=== PATIENT | male | born 1950 | race Two or more races ===

== ENCOUNTER 2020-09-25 12:06 | Inpatient (IN) | payer OTHER, MEDICAID ==
[~2020-09-25] VITALS: Ht 185.4 cm; Wt 66.4 kg
[2020-09-25] MEDS ORDERED: AZITHROMYCIN 500MG/ 250ML 250 ML IV ONE (12:30)
[2020-09-25] MEDS ORDERED: CHOLECALCIFEROL (VITD3) 2,000 UNIT CAP/TAB PO ONE (12:30)
[2020-09-25] MEDS ORDERED: methylPREDNISolone SOD SUCC 125 MG/2 ML VL IV ONE (12:30)
[2020-09-25] MEDS ORDERED: ASCORBIC ACID 500 MG TAB PO ONE (12:30)
[2020-09-25] MEDS ORDERED: ZINC SULFATE 220mg CAP or TAB PO ONE (12:30)
[2020-09-25 14:07] LABS: Basophils # (auto) 0 10 ^3/uL (0-0.2); Basophils % (auto) 0.2 % (0.0-2.0); Eosinophils # (auto) 0 10 ^3/uL (0-0.8); Hematocrit 42.7 % (41.0-53.0); Hemoglobin 14.7 g/dL (13.5-17.5); Lymphocytes # (auto) 0.7 10 ^3/uL (0.4-5.4); Lymphocytes % (auto) 9.6 % (10.0-50.0); Mean Corpuscular Hemoglobin 28.3 pg (28.0-32.0); Mean Corpuscular Hgb Conc. 34.4 g/dL (32.0-36.0); Mean Corpuscular Volume 82.4 fL (80.0-100.0); Monocytes # (auto) 0.6 10 ^3/uL (0-1.3); Monocytes % (auto) 8.1 % (0.0-12.0); Neutrophils # (auto) 6.1 10 ^3/uL (1.6-8.6); Neutrophils % (auto) 82.1 % (37.0-80.0); Nucleated Red Blood Cells % 0.1 %; Red Blood Cells 5.19 10^6/uL (4.5-5.90); Red Cell Distribution Width 14.7 % (11.8-14.3); White Blood Cell 7.4 10^3/uL (4.4-10.8)
[2020-09-25 14:30] LABS: Lactic Acid w/Reflex 2.6 mmol/L (0.4-2.0)
[2020-09-25 14:58] LABS: BUN/Creatinine Ratio 18.9; Calcium 7.8 mg/dL (8.5-10.1); Potassium 4.5 mmol/L (3.5-5.1)
[2020-09-25 15:07] LABS: Bilirubin, Total 0.4 mg/dL (0.2-1.0); CRP High Sensitivity 13.6 mg/dL (< 0.3); Total Protein 7.8 g/dL (6.4-8.2)
[2020-09-25] MEDS ORDERED: ONDANSETRON HCL 4 MG/2 ML VIAL IV PRN (16:15)
[2020-09-25] MEDS ORDERED: ACETAMINOPHEN 500 MG TAB PO PRN ×2 (16:15)
[2020-09-25] MEDS ORDERED: REMDESIVIR PER PHARMACY 0 ML IV SCH ×2 (16:15→18:30)
[2020-09-25] MEDS ORDERED: MORPHINE SULF INJ 2 MG/ML SYRINGE 1ML IV PRN (16:15)
[2020-09-25] MEDS ORDERED: NITROGLYCERIN 0.4 MG SL TAB SL PRN (16:15)
[2020-09-25] MEDS ORDERED: FUROSEMIDE 20 MG/2 ML VIAL IV ONE (16:15)
[2020-09-25] MEDS ORDERED: IVERMECTIN 3 MG TAB PO SCH (16:25)
[2020-09-25] MEDS: cefTRIAXone 1GM/50ML D5W 50 ML IV SCH (17:20)
[2020-09-25 17:52] LABS: Urine Bacteria FEW /hpf (None Seen); Urine Blood 1+ /uL (Negative); Urine Hyaline Cast FEW /lpf (0 - 2); Urine Mucus FEW (None Seen); Urine Specific Gravity 1.014 (1.001-1.035); Urine WBC 1 /hpf (0 - 3)
[2020-09-25] MEDS ORDERED: TOCILIZUMAB 400 MG in SODIUM CHL 0.9% 80 ML IV SCH (22:00)
[2020-09-25] MEDS: BUDESONIDE (INHALATION) 180 MCG IH IN SCH (22:05)
[2020-09-25] MEDS: ALBUTEROL SULF HFA 90MCG INH 200DOSE IN PRN (22:06)
[2020-09-25] MEDS: ENOXAPARIN SOD 40 MG/0.4 ML SYRINGE SC SCH (22:16)
[2020-09-26 05:11] VITALS: BP 143/73
[2020-09-26 05:36] VITALS: BP 136/67
[2020-09-26 06:21] VITALS: BP 169/84
[2020-09-26 06:38] LABS: Basophils # (auto) 0 10 ^3/uL (0-0.2); Basophils % (auto) 0.2 % (0.0-2.0); Eosinophils # (auto) 0 10 ^3/uL (0-0.8); Hematocrit 43.6 % (41.0-53.0); Hemoglobin 14.8 g/dL (13.5-17.5); Lymphocytes # (auto) 0.4 10 ^3/uL (0.4-5.4); Lymphocytes % (auto) 9.4 % (10.0-50.0); Mean Corpuscular Hemoglobin 28.1 pg (28.0-32.0); Mean Corpuscular Volume 82.6 fL (80.0-100.0); Monocytes # (auto) 0.5 10 ^3/uL (0-1.3); Monocytes % (auto) 11.7 % (0.0-12.0); Neutrophils # (auto) 3.3 10 ^3/uL (1.6-8.6); Neutrophils % (auto) 78.7 % (37.0-80.0); Nucleated Red Blood Cells % 0.1 %; Red Blood Cells 5.27 10^6/uL (4.5-5.90); Red Cell Distribution Width 15.2 % (11.8-14.3); White Blood Cell 4.2 10^3/uL (4.4-10.8)
[2020-09-26 06:54] LABS: Albumin 2.6 g/dL (3.4-5.0); Calcium 8.4 mg/dL (8.5-10.1); Potassium 5.4 mmol/L (3.5-5.1)
[2020-09-26 06:57] LABS: BUN/Creatinine Ratio 25.3; Bilirubin, Total 0.4 mg/dL (0.2-1.0); Total Protein 7.8 g/dL (6.4-8.2)
[2020-09-26 06:59] VITALS: BP 146/71
[2020-09-26] MEDS: BUDESONIDE (INHALATION) 180 MCG IH IN SCH ×2 (07:32→21:58)
[2020-09-26] MEDS: ALBUTEROL SULF HFA 90MCG INH 200DOSE IN PRN (07:33)
[2020-09-26] MEDS ORDERED: DEXTROSE (50%) 50ML SYRG IV PRN (08:15)
[2020-09-26] MEDS: cefTRIAXone 1GM/50ML D5W 50 ML IV SCH (09:28)
[2020-09-26] MEDS: DexAMETHasone SOD PHOS 10MG/1ML VIAL INJ IV SCH (10:07)
[2020-09-26] MEDS: PANTOPRAZOLE 40 MG TAB PO SCH (10:07)
[2020-09-26] MEDS: ENOXAPARIN SOD 40 MG/0.4 ML SYRINGE SC SCH ×2 (10:07→22:23)
[2020-09-26] MEDS: ASCORBIC ACID 1,000 MG TAB PO SCH (10:08)
[2020-09-26] MEDS: CHOLECALCIFEROL (VITD3) 2,000 UNIT CAP/TAB PO SCH (10:08)
[2020-09-26] MEDS: ZINC SULFATE 220mg CAP or TAB PO SCH (10:08)
[2020-09-26] MEDS: MORPHINE SULF INJ 2 MG/ML SYRINGE 1ML IV PRN (10:10)
[2020-09-26] MEDS: AZITHROMYCIN 500MG/ 250ML 250 ML IV SCH (11:07)
[2020-09-26] MEDS ORDERED: InsuLIN REG 1unit/0.01ml Soln (100units/ml) SC SCH (12:00)
[2020-09-26] MEDS: ACCU-CHEK COMFORT CURVE STRIP VI SCH ×2 (12:18→17:44)
[2020-09-26] MEDS: IVERMECTIN 3 MG TAB PO SCH (12:18)
[2020-09-26] MEDS ORDERED: REMDESIVIR 200 MG in NS 210ml LOADING DOSE ADULT IV ONE (15:00)
[2020-09-26] MEDS ORDERED: FUROSEMIDE 100 MG/10ML VIAL IV ONE (16:45)
[2020-09-26] MEDS: InsuLIN REG 1unit/0.01ml Soln (100units/ml) SC SCH ×2 (17:45→22:24)
[2020-09-26] MEDS: INSULIN LANTUS (GLARGINE) 1 /0.01ml (100units/ml) SC SCH (22:23)
[2020-09-26 23:28] VITALS: BP 100/64
[2020-09-27] MEDS ORDERED: LISI20TA28 PO (00:37)
[2020-09-27] MEDS ORDERED: GLIP5TAB5 PO (00:37)
[2020-09-27] MEDS ORDERED: INSU1INJ19 SC (00:37)
[2020-09-27] MEDS ORDERED: ASPI-318 PO (00:37)
[2020-09-27] MEDS: ACCU-CHEK COMFORT CURVE STRIP VI SCH ×6 (02:36→21:50)
[2020-09-27] MEDS: InsuLIN REG 1unit/0.01ml Soln (100units/ml) SC SCH ×6 (02:38→21:49)
[2020-09-27 05:00] VITALS: BP 115/70
[2020-09-27 06:47] LABS: Potassium 4.5 mmol/L (3.5-5.1)
[2020-09-27 06:54] LABS: Albumin 2.8 g/dL (3.4-5.0); Bilirubin, Total 0.3 mg/dL (0.2-1.0); Calcium 8.9 mg/dL (8.5-10.1); Total Protein 8.2 g/dL (6.4-8.2)
[2020-09-27] MEDS: ALBUTEROL SULF HFA 90MCG INH 200DOSE IN PRN ×2 (07:08→22:55)
[2020-09-27] MEDS: BUDESONIDE (INHALATION) 180 MCG IH IN SCH ×2 (07:08→22:55)
[2020-09-27 09:00] VITALS: BP 126/70
[2020-09-27] MEDS: cefTRIAXone 1GM/50ML D5W 50 ML IV SCH (10:11)
[2020-09-27] MEDS: DexAMETHasone SOD PHOS 10MG/1ML VIAL INJ IV SCH (10:12)
[2020-09-27] MEDS: IVERMECTIN 3 MG TAB PO SCH (10:12)
[2020-09-27] MEDS: AZITHROMYCIN 500MG/ 250ML 250 ML IV SCH ×2 (10:12→12:07)
[2020-09-27] MEDS: PANTOPRAZOLE 40 MG TAB PO SCH (10:12)
[2020-09-27] MEDS: ZINC SULFATE 220mg CAP or TAB PO SCH (10:12)
[2020-09-27] MEDS: CHOLECALCIFEROL (VITD3) 2,000 UNIT CAP/TAB PO SCH (10:13)
[2020-09-27] MEDS: ENOXAPARIN SOD 40 MG/0.4 ML SYRINGE SC SCH ×2 (10:13→21:49)
[2020-09-27] MEDS: ASCORBIC ACID 1,000 MG TAB PO SCH (10:13)
[2020-09-27] MEDS: HYDROcodone-ACET 5/325MG TAB PO PRN ×2 (12:10→18:15)
[2020-09-27 13:00] VITALS: BP 117/66
[2020-09-27] MEDS ORDERED: GLIP2.5T4 PO (14:20)
[2020-09-27] MEDS: REMDESIVIR 100mg 100 MG in SODIUM CHL 0.9% 230 ML IV SCH (16:15)
[2020-09-27 17:00] VITALS: BP 125/70
[2020-09-27] MEDS: INSULIN LANTUS (GLARGINE) 1 /0.01ml (100units/ml) SC SCH (21:50)
[2020-09-27 22:04] VITALS: BP 129/72
[2020-09-28] MEDS: HYDROcodone-ACET 5/325MG TAB PO PRN ×3 (00:18→13:12)
[2020-09-28] MEDS: ACCU-CHEK COMFORT CURVE STRIP VI SCH ×6 (01:51→20:47)
[2020-09-28] MEDS: InsuLIN REG 1unit/0.01ml Soln (100units/ml) SC SCH ×6 (01:55→20:44)
[2020-09-28 05:05] VITALS: BP 114/75
[2020-09-28] MEDS: ALBUTEROL SULF HFA 90MCG INH 200DOSE IN PRN ×2 (07:54→20:49)
[2020-09-28] MEDS: BUDESONIDE (INHALATION) 180 MCG IH IN SCH ×2 (07:54→19:21)
[2020-09-28 09:00] VITALS: BP 111/58
[2020-09-28] MEDS: CHOLECALCIFEROL (VITD3) 2,000 UNIT CAP/TAB PO SCH (10:01)
[2020-09-28] MEDS: DexAMETHasone SOD PHOS 10MG/1ML VIAL INJ IV SCH (10:01)
[2020-09-28] MEDS: cefTRIAXone 1GM/50ML D5W 50 ML IV SCH (10:01)
[2020-09-28] MEDS: AZITHROMYCIN 500MG/ 250ML 250 ML IV SCH (10:01)
[2020-09-28] MEDS: PANTOPRAZOLE 40 MG TAB PO SCH (10:02)
[2020-09-28] MEDS: IVERMECTIN 3 MG TAB PO SCH (10:02)
[2020-09-28] MEDS: ZINC SULFATE 220mg CAP or TAB PO SCH (10:02)
[2020-09-28] MEDS: ENOXAPARIN SOD 40 MG/0.4 ML SYRINGE SC SCH ×2 (10:03→20:47)
[2020-09-28] MEDS: ASCORBIC ACID 1,000 MG TAB PO SCH (10:03)
[2020-09-28 13:00] VITALS: BP 117/72
[2020-09-28 14:00] VITALS: BP 111/58
[2020-09-28] MEDS: MORPHINE SULF INJ 2 MG/ML SYRINGE 1ML IV PRN ×2 (14:38→18:25)
[2020-09-28] MEDS: REMDESIVIR 100mg 100 MG in SODIUM CHL 0.9% 230 ML IV SCH (15:14)
[2020-09-28 17:00] VITALS: BP 148/81
[2020-09-28 17:40] LABS: Creatinine, Urine 63 mg/dL (30.0-125.0); Protein, Urine 48.9 mg/dL (0.0-11.9); Sodium Urine 43 mmol/L (40-220)
[2020-09-28] MEDS: INSULIN LANTUS (GLARGINE) 1 /0.01ml (100units/ml) SC SCH (20:46)
[2020-09-28 22:13] VITALS: BP 97/58
[2020-09-29] MEDS: HYDROcodone-ACET 5/325MG TAB PO PRN ×3 (01:20→21:26)
[2020-09-29] MEDS: ACCU-CHEK COMFORT CURVE STRIP VI SCH ×6 (01:27→22:08)
[2020-09-29] MEDS: InsuLIN REG 1unit/0.01ml Soln (100units/ml) SC SCH ×6 (01:27→21:50)
[2020-09-29 05:10] VITALS: BP 126/76
[2020-09-29 06:37] LABS: Albumin 2.4 g/dL (3.4-5.0); BUN/Creatinine Ratio 42.4; Calcium 8.5 mg/dL (8.5-10.1); Potassium 4.3 mmol/L (3.5-5.1)
[2020-09-29 06:43] LABS: Bilirubin, Total 0.4 mg/dL (0.2-1.0); Total Protein 7.3 g/dL (6.4-8.2)
[2020-09-29] MEDS: MORPHINE SULF INJ 2 MG/ML SYRINGE 1ML IV PRN ×3 (06:45→19:38)
[2020-09-29] MEDS: ALBUTEROL SULF HFA 90MCG INH 200DOSE IN PRN ×2 (07:28→20:39)
[2020-09-29] MEDS: BUDESONIDE (INHALATION) 180 MCG IH IN SCH ×2 (07:29→20:38)
[2020-09-29 08:59] VITALS: BP 145/67
[2020-09-29] MEDS: ASCORBIC ACID 1,000 MG TAB PO SCH (10:17)
[2020-09-29] MEDS: cefTRIAXone 1GM/50ML D5W 50 ML IV SCH (10:17)
[2020-09-29] MEDS: DexAMETHasone SOD PHOS 10MG/1ML VIAL INJ IV SCH (10:17)
[2020-09-29] MEDS: AZITHROMYCIN 500MG/ 250ML 250 ML IV SCH (10:17)
[2020-09-29] MEDS: PANTOPRAZOLE 40 MG TAB PO SCH (10:17)
[2020-09-29] MEDS: ZINC SULFATE 220mg CAP or TAB PO SCH (10:17)
[2020-09-29] MEDS: IVERMECTIN 3 MG TAB PO SCH (10:17)
[2020-09-29] MEDS: ENOXAPARIN SOD 40 MG/0.4 ML SYRINGE SC SCH ×2 (10:18→21:45)
[2020-09-29] MEDS: CHOLECALCIFEROL (VITD3) 2,000 UNIT CAP/TAB PO SCH (10:18)
[2020-09-29 13:00] VITALS: BP 104/61
[2020-09-29] MEDS: REMDESIVIR 100mg 100 MG in SODIUM CHL 0.9% 230 ML IV SCH (15:12)
[2020-09-29 17:00] VITALS: BP 120/67
[2020-09-29 20:00] VITALS: BP 122/71
[2020-09-29] MEDS: INSULIN LANTUS (GLARGINE) 1 /0.01ml (100units/ml) SC SCH (21:51)
[2020-09-29 22:00] VITALS: BP 122/71
[2020-09-30] VITALS (8 sets, daily range): BP systolic 115–144; BP diastolic 52–82
[2020-09-30] MEDS: MORPHINE SULF INJ 2 MG/ML SYRINGE 1ML IV PRN ×5 (00:17→23:16)
[2020-09-30] MEDS: InsuLIN REG 1unit/0.01ml Soln (100units/ml) SC SCH ×6 (02:00→22:28)
[2020-09-30] MEDS: ACCU-CHEK COMFORT CURVE STRIP VI SCH ×6 (02:22→22:22)
[2020-09-30] MEDS: BUDESONIDE (INHALATION) 180 MCG IH IN SCH ×2 (07:26→19:30)
[2020-09-30] MEDS: ALBUTEROL SULF HFA 90MCG INH 200DOSE IN PRN ×2 (07:26→19:30)
[2020-09-30] MEDS: HYDROcodone-ACET 5/325MG TAB PO PRN (08:09)
[2020-09-30] MEDS: cefTRIAXone 1GM/50ML D5W 50 ML IV SCH (08:35)
[2020-09-30 09:46] LABS: Alanine Aminotransferase 16 U/L (16-61); Albumin 2.2 g/dL (3.4-5.0); Anion Gap 8 (5-15); Aspartate Aminotransferase 32 U/L (15-37); BUN/Creatinine Ratio 35.7; Blood Urea Nitrogen 35 mg/dL (7-18); Calcium 8.4 mg/dL (8.5-10.1); Carbon Dioxide 23 mmol/L (21-32); Chloride 109 mmol/L (98-107); GFR African American 98 mL/min; GFR Non-African American 81 mL/min; Glucose 117 mg/dL (74-106); Potassium 4.4 mmol/L (3.5-5.1); Sodium 140 mmol/L (136-145)
[2020-09-30 09:48] LABS: Alkaline Phosphatase 50 U/L (45-117); Bilirubin, Total 0.4 mg/dL (0.2-1.0); Total Protein 7.2 g/dL (6.4-8.2)
[2020-09-30] MEDS: AZITHROMYCIN 500MG/ 250ML 250 ML IV SCH (09:48)
[2020-09-30] MEDS: DexAMETHasone SOD PHOS 10MG/1ML VIAL INJ IV SCH (09:49)
[2020-09-30] MEDS: ZINC SULFATE 220mg CAP or TAB PO SCH (09:49)
[2020-09-30] MEDS: ASCORBIC ACID 1,000 MG TAB PO SCH (09:49)
[2020-09-30] MEDS: ENOXAPARIN SOD 40 MG/0.4 ML SYRINGE SC SCH ×2 (09:49→22:22)
[2020-09-30] MEDS: PANTOPRAZOLE 40 MG TAB PO SCH (09:49)
[2020-09-30] MEDS: CHOLECALCIFEROL (VITD3) 2,000 UNIT CAP/TAB PO SCH (10:00)
[2020-09-30] MEDS: REMDESIVIR 100mg 100 MG in SODIUM CHL 0.9% 230 ML IV SCH (14:49)
[2020-09-30] MEDS: INSULIN LANTUS (GLARGINE) 1 /0.01ml (100units/ml) SC SCH (22:28)
[2020-10-01] VITALS (7 sets, daily range): BP systolic 110–130; BP diastolic 55–75
[2020-10-01] MEDS: ACCU-CHEK COMFORT CURVE STRIP VI SCH ×6 (01:57→21:58)
[2020-10-01] MEDS: InsuLIN REG 1unit/0.01ml Soln (100units/ml) SC SCH ×6 (02:02→22:04)
[2020-10-01] MEDS: MORPHINE SULF INJ 2 MG/ML SYRINGE 1ML IV PRN ×3 (04:09→22:14)
[2020-10-01] MEDS: BUDESONIDE (INHALATION) 180 MCG IH IN SCH ×2 (07:33→20:18)
[2020-10-01] MEDS: ALBUTEROL SULF HFA 90MCG INH 200DOSE IN PRN ×2 (07:33→20:18)
[2020-10-01 07:41] LABS: Albumin 2.2 g/dL (3.4-5.0); Anion Gap 10 (5-15); Blood Urea Nitrogen 33 mg/dL (7-18); Carbon Dioxide 20 mmol/L (21-32); Chloride 112 mmol/L (98-107); Glucose 65 mg/dL (74-106); Potassium 4.2 mmol/L (3.5-5.1); Sodium 142 mmol/L (136-145)
[2020-10-01 07:45] LABS: Alanine Aminotransferase 19 U/L (16-61); Alkaline Phosphatase 49 U/L (45-117); Aspartate Aminotransferase 31 U/L (15-37); BUN/Creatinine Ratio 33.3; Bilirubin, Total 0.5 mg/dL (0.2-1.0); GFR African American 96 mL/min; GFR Non-African American 80 mL/min; Total Protein 6.9 g/dL (6.4-8.2)
[2020-10-01] MEDS: cefTRIAXone 1GM/50ML D5W 50 ML IV SCH (09:21)
[2020-10-01] MEDS: DexAMETHasone SOD PHOS 10MG/1ML VIAL INJ IV SCH (09:21)
[2020-10-01] MEDS: ZINC SULFATE 220mg CAP or TAB PO SCH (09:21)
[2020-10-01] MEDS: ASCORBIC ACID 1,000 MG TAB PO SCH (09:22)
[2020-10-01] MEDS: CHOLECALCIFEROL (VITD3) 2,000 UNIT CAP/TAB PO SCH (09:22)
[2020-10-01] MEDS: PANTOPRAZOLE 40 MG TAB PO SCH (09:22)
[2020-10-01] MEDS: ENOXAPARIN SOD 40 MG/0.4 ML SYRINGE SC SCH ×2 (09:22→21:58)
[2020-10-01] MEDS: INSULIN LANTUS (GLARGINE) 1 /0.01ml (100units/ml) SC SCH (22:05)
[2020-10-02] MEDS: InsuLIN REG 1unit/0.01ml Soln (100units/ml) SC SCH ×6 (02:00→21:47)
[2020-10-02] MEDS: ACCU-CHEK COMFORT CURVE STRIP VI SCH ×6 (02:05→21:46)
[2020-10-02 05:00] VITALS: BP 112/51
[2020-10-02 06:31] LABS: Calcium 8.9 mg/dL (8.5-10.1); Potassium 4.2 mmol/L (3.5-5.1)
[2020-10-02 06:35] LABS: Albumin 2.1 g/dL (3.4-5.0); BUN/Creatinine Ratio 34.5; Bilirubin, Total 0.6 mg/dL (0.2-1.0); Total Protein 6.8 g/dL (6.4-8.2)
[2020-10-02] MEDS: ALBUTEROL SULF HFA 90MCG INH 200DOSE IN PRN ×2 (07:50→21:33)
[2020-10-02] MEDS: BUDESONIDE (INHALATION) 180 MCG IH IN SCH ×2 (07:50→21:33)
[2020-10-02 08:53] VITALS: BP 133/67
[2020-10-02] MEDS: DexAMETHasone SOD PHOS 10MG/1ML VIAL INJ IV SCH (09:00)
[2020-10-02] MEDS: ASCORBIC ACID 1,000 MG TAB PO SCH (09:01)
[2020-10-02] MEDS: PANTOPRAZOLE 40 MG TAB PO SCH (09:01)
[2020-10-02] MEDS: ZINC SULFATE 220mg CAP or TAB PO SCH (09:01)
[2020-10-02] MEDS: CHOLECALCIFEROL (VITD3) 2,000 UNIT CAP/TAB PO SCH (09:01)
[2020-10-02] MEDS: ENOXAPARIN SOD 40 MG/0.4 ML SYRINGE SC SCH ×2 (09:02→21:46)
[2020-10-02] MEDS: MORPHINE SULF INJ 2 MG/ML SYRINGE 1ML IV PRN ×3 (09:15→21:11)
[2020-10-02 12:54] VITALS: BP 125/69
[2020-10-02 17:00] VITALS: BP 116/67
[2020-10-02] MEDS: INSULIN LANTUS (GLARGINE) 1 /0.01ml (100units/ml) SC SCH (21:46)
[2020-10-02 22:00] VITALS: BP 98/48
[2020-10-03] MEDS: ACCU-CHEK COMFORT CURVE STRIP VI SCH ×6 (01:52→22:53)
[2020-10-03] MEDS: InsuLIN REG 1unit/0.01ml Soln (100units/ml) SC SCH ×6 (01:53→22:55)
[2020-10-03 05:00] VITALS: BP 103/40
[2020-10-03] MEDS: ALBUTEROL SULF HFA 90MCG INH 200DOSE IN PRN ×2 (07:16→22:28)
[2020-10-03] MEDS: BUDESONIDE (INHALATION) 180 MCG IH IN SCH ×2 (07:16→22:28)
[2020-10-03 08:46] VITALS: BP 112/56
[2020-10-03] MEDS: DexAMETHasone SOD PHOS 10MG/1ML VIAL INJ IV SCH (10:38)
[2020-10-03] MEDS: CHOLECALCIFEROL (VITD3) 2,000 UNIT CAP/TAB PO SCH (10:40)
[2020-10-03] MEDS: ZINC SULFATE 220mg CAP or TAB PO SCH (10:40)
[2020-10-03] MEDS: ASCORBIC ACID 1,000 MG TAB PO SCH (10:40)
[2020-10-03] MEDS: PANTOPRAZOLE 40 MG TAB PO SCH (10:41)
[2020-10-03] MEDS: ENOXAPARIN SOD 40 MG/0.4 ML SYRINGE SC SCH ×2 (10:49→22:53)
[2020-10-03 13:00] VITALS: BP 139/71
[2020-10-03] MEDS: MORPHINE SULF INJ 2 MG/ML SYRINGE 1ML IV PRN ×2 (15:14→23:29)
[2020-10-03 16:58] VITALS: BP 120/63
[2020-10-03 22:00] VITALS: BP 100/52
[2020-10-03] MEDS: INSULIN LANTUS (GLARGINE) 1 /0.01ml (100units/ml) SC SCH (22:55)
[2020-10-04] MEDS: InsuLIN REG 1unit/0.01ml Soln (100units/ml) SC SCH ×5 (02:00→18:24)
[2020-10-04] MEDS: ACCU-CHEK COMFORT CURVE STRIP VI SCH ×5 (02:07→18:16)
[2020-10-04 05:00] VITALS: BP 115/63
[2020-10-04] MEDS: BUDESONIDE (INHALATION) 180 MCG IH IN SCH (07:18)
[2020-10-04] MEDS: ALBUTEROL SULF HFA 90MCG INH 200DOSE IN PRN (07:18)
[2020-10-04 09:00] VITALS: BP 105/55
[2020-10-04] MEDS: ENOXAPARIN SOD 40 MG/0.4 ML SYRINGE SC SCH (10:00)
[2020-10-04] MEDS: ASCORBIC ACID 1,000 MG TAB PO SCH (10:00)
[2020-10-04] MEDS: DexAMETHasone SOD PHOS 10MG/1ML VIAL INJ IV SCH (10:41)
[2020-10-04] MEDS: ZINC SULFATE 220mg CAP or TAB PO SCH (10:41)
[2020-10-04] MEDS: PANTOPRAZOLE 40 MG TAB PO SCH (10:42)
[2020-10-04] MEDS: CHOLECALCIFEROL (VITD3) 2,000 UNIT CAP/TAB PO SCH (10:42)
[2020-10-04] MEDS: MORPHINE SULF INJ 2 MG/ML SYRINGE 1ML IV PRN ×2 (10:44→13:50)
[2020-10-04 12:45] VITALS: BP 138/75
[2020-10-04 14:02] VITALS: BP 138/75
[2020-10-04 16:38] VITALS: BP 110/61
== END 2020-10-04 21:34 | disposition home or self-care (01) | DRG 177 ==
LOC: ER 12:06 → EDBD 12:06 → TELE 16:08 → TELE-EAST 09-26 21:52
PROVIDERS: ADMIT Nurse Practitioner Acute Care; ATTEND Family Medicine
PROC: XW13325 Transfusion of Convalescent Plasma (Nonautologous) into Peripheral Vein, Percutaneous Approach, New Technology Group 5 (ICD-10-PCS; principal; 2020-09-26)
PROC: XW033E5 Introduction of Remdesivir Anti-infective into Peripheral Vein, Percutaneous Approach, New Technology Group 5 (ICD-10-PCS; 2020-09-26)
DX: U07.1 COVID-19 (principal); J12.82 Pneumonia due to coronavirus disease 2019; J96.01 Acute respiratory failure with hypoxia; E44.0 Moderate protein-calorie malnutrition; N17.9 Acute kidney failure, unspecified; Z68.1 Body mass index [BMI] 19.9 or less, adult; D89.839 Cytokine release syndrome, grade unspecified; N18.32 Chronic kidney disease, stage 3b; E11.65 Type 2 diabetes mellitus with hyperglycemia; E78.5 Hyperlipidemia, unspecified; T38.0X5A Adverse effect of glucocorticoids and synthetic analogues, initial encounter; E78.00 Pure hypercholesterolemia, unspecified; I12.9 Hypertensive chronic kidney disease with stage 1 through stage 4 chronic kidney disease, or unspecified chronic kidney disease; E11.22 Type 2 diabetes mellitus with diabetic chronic kidney disease; Z79.899 Other long term (current) drug therapy; Z85.01 Personal history of malignant neoplasm of esophagus; Z79.84 Long term (current) use of oral hypoglycemic drugs; Z83.3 Family history of diabetes mellitus; Y92.89 Other specified places as the place of occurrence of the external cause; Z79.82 Long term (current) use of aspirin; Z85.818 Personal history of malignant neoplasm of other sites of lip, oral cavity, and pharynx
CPT/HCPCS: 36415; 36600; 71045; 76775; 80053; 81001; 82306; 82570; 82728; 82805; 82962; 83036; 83605; 83880; 83970; 84100; 84132; 84156; 84300; 84484; 85025; 85379; 86141; 86850; 86900; 86901; 87040; 87426; 93005; 93970; 94640; 96374; 99291; G0378; J0696; J1100; J1815